=== PATIENT | male | born 1965 | race Caucasian/White ===

== ENCOUNTER 2021-12-25 11:45 | Emergency (ER) | payer MEDICARE, OTHER ==
[2021-12-25 14:55] LABS: BASOPHIL 0.4 % (0-2); EOSINOPHIL 1.3 % (0-5); HCT 40.4 % (42.0-52.0); HGB 15.6 g/dl (13.2-18.0); LYMPHOCYTE 26.8 % (15-48); MCH 36.9 pg (25.0-31.0); MCHC 38.6 g/dL (32.0-36.0); MCV 95.5 fL (78.0-100.0); MONOCYTE 11.5 % (0-12); MPV 9.8 fL (6.0-9.5); NEUTROPHIL 59.6 % (41-80); NRBC 0; PLT 163 K/uL (150-400); RBC 4.23 M/uL (4.70-6.00); RDW 13.5 % (11.5-14.0); WBC 5.3 K/uL (4.0-10.5)
[2021-12-25 15:08] LABS: ALBUMIN 3.2 g/dL (3.4-5.0); BILIRUBIN - TOTAL 0.3 mg/dL (0.2-1.0); BUN/CREAT RATIO (CALC) 18.2 RATIO; CREATININE 0.55 mg/dL (0.67-1.17); GLOBULIN (CALCULATION) 4.5 g/dL; POTASSIUM 4.4 mmol/L (3.5-5.1); TOTAL PROTEIN 7.7 g/dL (6.4-8.2)
== END 2021-12-25 18:33 | disposition home or self-care (01) ==
LOC: FER 11:45
PROVIDERS: Physician Assistant
DX: G62.9 Polyneuropathy, unspecified (principal); I73.9 Peripheral vascular disease, unspecified; I10 Essential (primary) hypertension; F17.290 Nicotine dependence, other tobacco product, uncomplicated; Z79.01 Long term (current) use of anticoagulants; Z79.899 Other long term (current) drug therapy
CPT/HCPCS: 36415; 80053; 85025; 93971; Q9967